=== PATIENT | female | born 1970 | race Caucasian/White ===

== ENCOUNTER 2018-12-08 05:13 | Emergency (ER) | payer MEDICAID, OTHER ==
[~2018-12-08] VITALS: Ht 167.6 cm; Wt 74.8 kg
[2018-12-08 05:17] VITALS: BP 156/100
== END 2018-12-08 05:54 | disposition home or self-care (01) ==
LOC: ER 05:19
DX: H01.004 Unspecified blepharitis left upper eyelid (principal); H01.001 Unspecified blepharitis right upper eyelid; F17.200 Nicotine dependence, unspecified, uncomplicated; Z60.2 Problems related to living alone; Z87.442 Personal history of urinary calculi

== ENCOUNTER 2019-10-16 11:27 | Emergency (ER) | payer OTHER ==
[~2019-10-16] VITALS: Ht 167.6 cm; Wt 68.0 kg
--- NOTE | 2019-10-16 11:35 | NUR ---
[facility] IM FOR L FLANK PAIN SINCE YESTERDAY. TO ER BED 11, HOOKED TO MONITOR, CHANGED TO HOSP GOWN, WARM BLANKET PROVIDED, PATIENT AAO x 4, BREATHING EVEN AND UNLABORED. DR ROQUE AT BEDSIDE FOR EVAL.
--- NOTE | 2019-10-16 11:56 | NUR ---
URINE SAMPLE SENT TO LAB
[2019-10-16] MEDS: IV NS 0.9% 1,000 ML BAG IV ONE (12:04)
[2019-10-16 12:09] LABS: BASOPHILS % (AUTO) 0.6 % (0.0-2.0); EOSINOPHILS % (AUTO) 1.5 % (0.0-6.0); HEMATOCRIT 39 % (33-45); HEMOGLOBIN 13.3 g/dL (11.5-14.8); LYMPHOCYTES # (AUTO) 1.6 /CMM (0.8-4.8); LYMPHOCYTES % (AUTO) 25.5 % (20.0-44.0); MEAN CORPUSCULAR HGB CONC 34 g/dl (31.0-36.0); MEAN CORPUSCULAR VOLUME 94 fL (82-100); MONOCYTES # (AUTO) 0.5 /CMM (0.1-1.30); MONOCYTES % (AUTO) 7.2 % (2.0-12.0); NEUTROPHILS # (AUTO) 4.1 /CMM (1.8-8.9); NEUTROPHILS % (AUTO) 65.2 % (43.0-81.0); PLATELET COUNT (AUTO) 230 /CMM (150-450); RED BLOOD CELL COUNT(AUTO) 4.19 MIL/uL (4.0-5.2); WHITE BLOOD COUNT (AUTO) 6.3 K/uL (4.3-11.0)
[2019-10-16 12:23] LABS: CALCIUM, SERUM 8.9 mg/dL (8.5-10.1); CREATININE 0.9 mg/dL (0.6-1.3)
[2019-10-16 12:26] LABS: APPEARANCE,URINE Slightly Cloudy (CLEAR); BILIRUBIN,URINE Negative (NEGATIVE); BLOOD, URINE Trace-intact Ery/uL (NEGATIVE); COLOR,URINE Yellow (YELLOW); KETONES,URINE Negative (NEGATIVE); LEUKOCYTE ESTERASE ,URINE Small (NEGATIVE); NITRITE, URINE Negative (NEGATIVE); PROTEIN,URINE Negative (NEGATIVE); UGLUCOSE Negative (NEGATIVE); UROBILINOGEN,URINE 0.2 EU/dL (0.2)
[2019-10-16 12:27] LABS: BACTERIA,URINE Few /HPF (None Seen); SQUAMOUS EPITHELIAL CELL,UR Few /HPF (None Seen)
[2019-10-16 12:29] LABS: ALBUMIN 3.6 g/dL (3.4-5.0); BILIRUBIN,TOTAL 0.1 mg/dL (0.2-1.0); TOTAL PROTEIN, SERUM 6.9 g/dL (6.4-8.2)
[2019-10-16] MEDS ORDERED: KETOROLAC TROMETHAMINE 15 MG/ML VIAL ONE (12:29)
[2019-10-16] MEDS: KETOROLAC TROMETHAMINE INJ 30 MG/ML VIAL IV ONE (12:33)
--- NOTE | 2019-10-16 12:48 | NUR ---
WHEELED OUT VIA RNEY FOR CT SCAN
--- NOTE | 2019-10-16 13:57 | NUR ---
IV removed. Catheter intact and site benign. Pressure and 4x4 applied to site. No bleeding noted.Patient discharged to home in stable condition. Written and verbal after care instructions given. Patient verbalizes understanding of instruction.
[2019-10-16 13:58] VITALS: BP 145/78
== END 2019-10-16 13:59 | disposition home or self-care (01) ==
LOC: ER 11:27
DX: M54.5 Low back pain (principal); Z87.442 Personal history of urinary calculi; Z60.2 Problems related to living alone
CPT/HCPCS: 36415; 71045; 74176; 80048; 80076; 81001; 83690; 84703; 85025; 96374; 99285; J1885; J7030; 81000-TC

== ENCOUNTER 2019-11-23 07:19 | Emergency (ER) | payer MEDICAID, OTHER ==
[~2019-11-23] VITALS: Ht 167.6 cm; Wt 68.0 kg
--- NOTE | 2019-11-23 07:32 | NUR ---
CAME IN FOR FLANK PAIN SINCE 3AM TODAY 11/24 PS, TO ER BED 11, HOOKED TO MONITOR, CHANGED TO HOSP GOWN, WARM BLANKET PROVIDED, PATIENT AAO x 4, BREATHING EVEN AND UNLABORED. DR SORIA AT BEDSIDE.
[2019-11-23 07:54] LABS: BASOPHILS % (AUTO) 0.6 % (0.0-2.0); HEMATOCRIT 39 % (33-45); HEMOGLOBIN 13.4 g/dL (11.5-14.8); LYMPHOCYTES # (AUTO) 1.7 /CMM (0.8-4.8); LYMPHOCYTES % (AUTO) 24.7 % (20.0-44.0); MEAN CORPUSCULAR HGB CONC 34 g/dl (31.0-36.0); MEAN CORPUSCULAR VOLUME 93 fL (82-100); MONOCYTES # (AUTO) 0.6 /CMM (0.1-1.30); MONOCYTES % (AUTO) 8.4 % (2.0-12.0); NEUTROPHILS # (AUTO) 4.5 /CMM (1.8-8.9); NEUTROPHILS % (AUTO) 64.3 % (43.0-81.0); PLATELET COUNT (AUTO) 230 /CMM (150-450)
[2019-11-23] MEDS ORDERED: KETOROLAC TROMETHAMINE INJ 30 MG/ML VIAL ONE (07:54)
--- NOTE | 2019-11-23 07:56 | NUR ---
URINE SAMPLE COLLECTED ANS SENT TO LAB
--- NOTE | 2019-11-23 07:58 | NUR ---
PATIENT STATES "I GOT MY TUBE TIED" WHEN ASKED IF SHE IS
[2019-11-23] MEDS ORDERED: KETOROLAC TROMETHAMINE INJ 30 MG/ML VIAL IM ONE (08:00)
[2019-11-23 08:08] LABS: APPEARANCE,URINE Cloudy (CLEAR); BILIRUBIN,URINE Negative (NEGATIVE); BLOOD, URINE Negative Ery/uL (NEGATIVE); COLOR,URINE Yellow (YELLOW); KETONES,URINE Negative (NEGATIVE); LEUKOCYTE ESTERASE ,URINE Negative (NEGATIVE); NITRITE, URINE Negative (NEGATIVE); PH,URINE 8.5 (5.0-8.0); PROTEIN,URINE Negative (NEGATIVE); UGLUCOSE Negative (NEGATIVE); UROBILINOGEN,URINE 0.2 EU/dL (0.2)
[2019-11-23 08:32] LABS: CALCIUM, SERUM 9.4 mg/dL (8.5-10.1); CREATININE 0.9 mg/dL (0.6-1.3); POTASSIUM 3.8 mmol/L (3.5-5.1)
[2019-11-23 08:38] LABS: ALBUMIN 3.7 g/dL (3.4-5.0); BILIRUBIN,DIRECT 0.1 mg/dL (0.0-0.2); BILIRUBIN,TOTAL 0.5 mg/dL (0.2-1.0)
--- NOTE | 2019-11-23 08:58 | NUR ---
PT IS BACK FROM THE CT SCAN.
--- NOTE | 2019-11-23 09:43 | NUR ---
Patient discharged to home in stable condition. Written and verbal after care instructions given. Patient verbalizes understanding of instruction. Refused to sign discharge paper
[2019-11-23 09:45] VITALS: BP 132/90
== END 2019-11-23 09:45 | disposition home or self-care (01) ==
LOC: ER 07:23
DX: D25.9 Leiomyoma of uterus, unspecified (principal); M54.5 Low back pain; F17.200 Nicotine dependence, unspecified, uncomplicated; Z60.2 Problems related to living alone
CPT/HCPCS: 36415; 74176; 80048; 80076; 81001; 83690; 84703; 85025; 87086; 96372; 99284; J1885; 81000-TC; 87186-TC

== ENCOUNTER 2020-05-17 15:44 | Emergency (ER) | payer OTHER ==
[~2020-05-17] VITALS: Ht 167.6 cm; Wt 70.3 kg
[2020-05-17 15:50] VITALS: BP 146/99
[2020-05-17] MEDS ORDERED: CEFTRIAXONE 1 G VIAL IM ONE (17:00)
[2020-05-17] MEDS ORDERED: CEFTRIAXONE 500 MG VIAL ONE ×2 (17:22→17:34)
[2020-05-17] MEDS ORDERED: LIDOCAINE /MPF 1% VIAL 5 ML VIAL ONE (17:23)
[2020-05-17 17:25] LABS: BILIRUBIN,URINE Negative (NEGATIVE); COLOR,URINE YELLOW (YELLOW); LEUKOCYTE ESTERASE ,URINE Small (NEGATIVE); NITRITE, URINE Negative (NEGATIVE); PH,URINE 6.5 (5.0-8.0); PROTEIN,URINE Trace mg/dl (NEGATIVE); UGLUCOSE Negative (NEGATIVE); UROBILINOGEN,URINE 0.2 EU/dL (0.2)
[2020-05-17] MEDS ORDERED: LIDOCAINE 1% INJ 50 ML MDV IJ ONE (17:35)
[2020-05-17 17:45] LABS: BACTERIA,URINE Few /HPF (None Seen); SQUAMOUS EPITHELIAL CELL,UR Few /HPF (None Seen); WBC,URINE 21-50 /HPF (0-3)
[2020-05-17] MEDS ORDERED: DOXY100C2 PO (17:58)
--- NOTE | 2020-05-17 18:04 | NUR ---
Patient discharged to home in stable condition. Written and verbal after care instructions given. Patient verbalizes understanding of instruction.
== END 2020-05-17 18:05 | disposition home or self-care (01) ==
LOC: ER 15:48
DX: A64 Unspecified sexually transmitted disease (principal); N39.0 Urinary tract infection, site not specified; F17.200 Nicotine dependence, unspecified, uncomplicated; Z60.2 Problems related to living alone
CPT/HCPCS: 81001; 87086; 87491; 87591; 96372; 99283; J0696 ×2; J3490 ×2

== ENCOUNTER 2020-06-29 21:29 | Emergency (ER) | payer OTHER ==
[~2020-06-29] VITALS: Ht 167.6 cm; Wt 68.0 kg
[~2020-06-29 21:29] MED LIST: DOXY100C2 PO
[2020-06-29] MEDS ORDERED: ONDANSETRON HCL/PF 4 MG/2 ML VIAL ONE (21:46)
[2020-06-29] MEDS ORDERED: MORPHINE SULFATE INJ 4 MG/ML DISP.SYRIN ONE ×2 (21:46→23:27)
[2020-06-29] MEDS ORDERED: ONDANSETRON HCL/PF 4 MG/2 ML VIAL IVP ONE (22:00)
[2020-06-29] MEDS ORDERED: IV NS 0.9% 1,000 ML BAG IV ONE (22:00)
[2020-06-29] MEDS ORDERED: MORPHINE SULFATE INJ 2 MG/ML DISP.SYRIN IV ONE ×2 (22:00→23:30)
[2020-06-29 22:11] LABS: BILIRUBIN,URINE Negative (NEGATIVE); COLOR,URINE YELLOW (YELLOW); LEUKOCYTE ESTERASE ,URINE Small (NEGATIVE); NITRITE, URINE Positive (NEGATIVE); PROTEIN,URINE Trace mg/dl (NEGATIVE); UGLUCOSE Negative (NEGATIVE); UROBILINOGEN,URINE 0.2 EU/dL (0.2)
[2020-06-29 22:16] LABS: BASOPHILS # (AUTO) 0.1 /CMM (0.0-0.2); BASOPHILS % (AUTO) 0.5 % (0.0-2.0); EOSINOPHILS % (AUTO) 0.9 % (0.0-6.0); HEMATOCRIT 43 % (33-45); HEMOGLOBIN 14.4 g/dL (11.5-14.8); LYMPHOCYTES # (AUTO) 1.6 /CMM (0.8-4.8); LYMPHOCYTES % (AUTO) 13.4 % (20.0-44.0); MEAN CORPUSCULAR HGB CONC 34 g/dl (31.0-36.0); MEAN CORPUSCULAR VOLUME 91 fL (82-100); MONOCYTES # (AUTO) 0.8 /CMM (0.1-1.30); MONOCYTES % (AUTO) 6.5 % (2.0-12.0); NEUTROPHILS # (AUTO) 9.3 /CMM (1.8-8.9); NEUTROPHILS % (AUTO) 78.7 % (43.0-81.0); PLATELET COUNT (AUTO) 238 /CMM (150-450); RED BLOOD CELL COUNT(AUTO) 4.72 MIL/uL (4.0-5.2); WHITE BLOOD COUNT (AUTO) 11.8 K/uL (4.3-11.0)
[2020-06-29 22:19] LABS: BACTERIA,URINE 2+ /HPF (None Seen); SQUAMOUS EPITHELIAL CELL,UR Few /HPF (None Seen)
--- NOTE | 2020-06-29 22:20 | NUR ---
PT STILL C/O SEVERE PAIN, UNABLE TO TOLERATE CT AT THIS TIME. MD VANG
[2020-06-29] MEDS ORDERED: KETOROLAC TROMETHAMINE INJ 30 MG/ML VIAL ONE (22:27)
[2020-06-29 22:29] LABS: ALBUMIN 3.8 g/dL (3.4-5.0); BILIRUBIN,DIRECT 0.1 mg/dL (0.0-0.2); BILIRUBIN,TOTAL 0.3 mg/dL (0.2-1.0); CALCIUM, SERUM 10.3 mg/dL (8.5-10.1); POTASSIUM 3.9 mmol/L (3.5-5.1); TOTAL PROTEIN, SERUM 8.2 g/dL (6.4-8.2)
[2020-06-29] MEDS ORDERED: CEFTRIAXONE 1GM BAG (ER ONLY) 1 GM/50 ML PIGGYBACK IV ONE (22:30)
[2020-06-29] MEDS ORDERED: KETOROLAC TROMETHAMINE INJ 30 MG/ML VIAL IV ONE (22:30)
--- NOTE | 2020-06-29 22:36 | NUR ---
[employer]ICAL [employer]ES [employer]INE[employer] AT BEDSIDE FOR BLOOD CULTURE
--- NOTE | 2020-06-29 22:45 | NUR ---
BROUGHT BY RADIOLOGY TO CT
[2020-06-29] MEDS ORDERED: CEFTRIAXONE 1GM BAG (ER ONLY) 50 ML IV ONE (22:50)
--- NOTE | 2020-06-29 22:55 | NUR ---
PT RETURNED FROM CT
[2020-06-29] MEDS ORDERED: HYDR-4303 PO (23:24)
[2020-06-29] MEDS ORDERED: IBUP-1955 PO (23:24)
[2020-06-29] MEDS ORDERED: TAMS-12 PO (23:24)
[2020-06-29] MEDS ORDERED: ONDA4TAB5 PO (23:24)
[2020-06-29] MEDS ORDERED: CEPH500T PO (23:24)
[2020-06-29] MEDS ORDERED: TAMSULOSIN 0.4 MG CAP.SR.24H ONE (23:27)
[2020-06-29] MEDS ORDERED: TAMSULOSIN 0.4 MG CAP.SR.24H PO ONE (23:30)
[2020-06-30 00:40] VITALS: BP 138/72
--- NOTE | 2020-06-30 00:40 | NUR ---
Patient discharged to home in stable condition. Written and verbal after care instructions given. Patient verbalizes understanding of instruction.Pt ambulatory with a steady gait IV removed. Catheter intact and site benign. Pressure and 4x4 applied to site. No bleeding noted. Pt instructed not to drive, verbalized understanding and was picked up by friend
== END 2020-06-30 00:40 | disposition home or self-care (01) ==
LOC: ER 21:32
DX: N23 Unspecified renal colic (principal); N39.0 Urinary tract infection, site not specified; F17.200 Nicotine dependence, unspecified, uncomplicated; Z60.2 Problems related to living alone; Z79.899 Other long term (current) drug therapy
CPT/HCPCS: 36415; 74176; 80048; 80076; 81001; 83690; 84703; 85025; 87040 ×2; 96361; 96365; 96375; 96376; 99284; J0696; J1885; J2270 ×2; J2405; J7030; 87086-TC

== ENCOUNTER 2020-07-29 15:38 | Emergency (ER) | payer OTHER ==
[~2020-07-29] VITALS: Ht 167.6 cm; Wt 68.9 kg
[~2020-07-29 15:38] MED LIST changes: +CEPH500T PO; +HYDR-4303 PO; +IBUP-1955 PO; +ONDA4TAB5 PO; +TAMS-12 PO
--- NOTE | 2020-07-29 15:45 | NUR ---
THE PATIENT IS IN ER BED # 14 FOR C/O RIGHT FLANK/BACK AND ABDOMINAL PAIN SINCE THIS MORNING. THE PATIENT RATES PAIN 10/10. DENIES N/V AT THIS TIME. IN ROOM AIR AND DENIES SOB. RESPIRATION REGULAR AND UNLABORED. WILL CONTINUE TO MONITOR THE PATIENT.
[2020-07-29] MEDS ORDERED: KETOROLAC TROMETHAMINE 15 MG/ML VIAL ONE (15:49)
[2020-07-29] MEDS ORDERED: IV NS 0.9% 1,000 ML BAG IV ONE (16:00)
[2020-07-29] MEDS ORDERED: KETOROLAC TROMETHAMINE INJ 30 MG/ML VIAL IV ONE (16:00)
[2020-07-29 16:15] LABS: BASOPHILS % (AUTO) 0.4 % (0.0-2.0); EOSINOPHILS % (AUTO) 0.6 % (0.0-6.0); HEMATOCRIT 28 % (33-45); HEMOGLOBIN 8.8 g/dL (11.5-14.8); LYMPHOCYTES # (AUTO) 1.1 /CMM (0.8-4.8); LYMPHOCYTES % (AUTO) 9.5 % (20.0-44.0); MEAN CORPUSCULAR HGB CONC 32 g/dl (31.0-36.0); MEAN CORPUSCULAR VOLUME 86 fL (82-100); MONOCYTES # (AUTO) 0.7 /CMM (0.1-1.30); MONOCYTES % (AUTO) 6.1 % (2.0-12.0); NEUTROPHILS # (AUTO) 9.7 /CMM (1.8-8.9); NEUTROPHILS % (AUTO) 83.4 % (43.0-81.0); PLATELET COUNT (AUTO) 333 /CMM (150-450); WHITE BLOOD COUNT (AUTO) 11.6 K/uL (4.3-11.0)
[2020-07-29 16:22] LABS: CALCIUM, SERUM 9.4 mg/dL (8.5-10.1); CREATININE 1.1 mg/dL (0.6-1.3)
[2020-07-29 16:28] LABS: ALBUMIN 3.9 g/dL (3.4-5.0); BILIRUBIN,DIRECT 0.1 mg/dL (0.0-0.2); BILIRUBIN,TOTAL 0.4 mg/dL (0.2-1.0); TOTAL PROTEIN, SERUM 7.6 g/dL (6.4-8.2)
--- NOTE | 2020-07-29 16:55 | NUR ---
CALLED [facility] [phone] WILL CALL US BACK.
[2020-07-29] MEDS ORDERED: IBUP-1957 PO (18:11)
--- NOTE | 2020-07-29 18:44 | NUR ---
Patient discharged to home in stable condition. Written and verbal after care instructions given. Patient verbalizes understanding of instruction.IV removed. Catheter intact and site benign. Pressure and 4x4 applied to site. No bleeding noted. Pt ambulatory with a steady gait
[2020-07-29 18:46] VITALS: BP 128/72
== END 2020-07-29 18:48 | disposition home or self-care (01) ==
LOC: ER 15:41
DX: N23 Unspecified renal colic (principal); F17.200 Nicotine dependence, unspecified, uncomplicated; Z60.2 Problems related to living alone; Z79.899 Other long term (current) drug therapy
CPT/HCPCS: 74176; 80048; 80076; 83690; 85025; 96361; 96374; 99284; J1885; J7030